=== PATIENT | male | born 1970 ===

== ENCOUNTER 2021-07-06 05:20 | Emergency (ER) | payer MEDICAID ==
[2021-07-06] MEDS ORDERED: Sodium Chloride 0.9% 10 ML Syringe FLUSH PRN (05:48)
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
[2021-07-06] MEDS ORDERED: Metoprolol Tartrate 5 MG in Sodium Chloride 0.9% 50 ML IV ONE (06:33)
[2021-07-06] MEDS ORDERED: Morphine 2 MG/ML SYRINGE IM ONE (06:36)
[2021-07-06] MEDS ORDERED: LORazepam 2 MG/ML SDV IM ONE (06:37)
[2021-07-06] MEDS ORDERED: Clopidogrel 75 MG Tab PO ONE (06:38)
[2021-07-06] MEDS ORDERED: atorvaSTATin 80 MG Tab PO ONE (06:38)
[2021-07-06] MEDS ORDERED: Enoxaparin 100 MG/1 ML Syringe SUBCUT ONE (06:39)
[2021-07-06] MEDS ORDERED: Sodium Chloride 0.9% 1,000 ML IV SCH (06:45)
[2021-07-06] MEDS ORDERED: Nitroglycerin/D5W 25 MG/250 ML BOTTLE IV SCH (07:00)
[2021-07-06] MEDS ORDERED: Metoprolol Tartrate 5 MG/5 ML SDV ONE (07:12)
[2021-07-06] MEDS ORDERED: LORazepam 2 MG/ML SDV IVPUSH ONE (08:27)
[2021-07-06] MEDS ORDERED: LORazepam 2 MG/ML SDV ONE (08:39)
--- NOTE | 2021-07-08 10:20 | CR ---
DATE OF SERVICE: 07/06/2021 CLINICAL DATA: SOB. PORTABLE CHEST: No priors. The heart size is normal. The lungs are clear. No pneumothorax. No pleural effusions. No evidence of acute intrathoracic disease. [id number] MTDD
== END 2021-07-06 09:30 ==
LOC: LB.ED 05:20
DX: I21.4 Non-ST elevation (NSTEMI) myocardial infarction (principal); Z20.822 Contact with and (suspected) exposure to COVID-19
CPT/HCPCS: 36415; 71045; 80048; 80307; 84484; 85025; 87635; 93005; 96365; 96366; 96372; 96375; 99285; A0425; A0429; A9270; J1650; J2060; J2270; J3490; J7030; U0002